=== PATIENT | male | born 2000 | race Caucasian/White ===

== ENCOUNTER 2019-09-26 22:51 | Emergency (ER) | payer MEDICAID, SELFPAY | END 2019-09-27 00:38 | disposition home or self-care (01) | PROVIDERS: Emergency Provider Physician Assistant; Family Provider Nurse Practitioner Family; Visit Provider Physician Assistant | DX: M94.0 Chondrocostal junction syndrome [Tietze] (principal) | CPT/HCPCS: 71046; 99281 ==

== ENCOUNTER 2024-07-29 08:49 | Outpatient (CLI) | payer MEDICARE, MEDICAID, SELFPAY ==
--- NOTE | 2024-07-29 08:56 | FL_ITS ---
WS: [id number] Barium swallow and esophagram, 07/29/2024 Clinical Data: DYSPHAGIA,UNSPECIFIED/HEMOPTYSIS Comparison: None. Fluoroscopy time: 1min [id number] # of spot films: 5 Findings: The patient swallowed the thick and thin barium, and it flowed through the hypopharynx without hesita tion. No stricture, mass, polyp or erosion was seen. The barium entered the esophagus and there was normal motility throughout. No hiatal hernia, reflux, stricture, polyp, mass, erosion or ulcer was noted. No ulcerations are seen. The barium passed normal ly into the stomach.. FL/FL barium swallow [id number] Impression: Normal esophagram.
== END 2024-07-29 08:50 | disposition home or self-care (01) ==
PROVIDERS: Visit Provider Otolaryngology
DX: R13.10 Dysphagia, unspecified (principal); R04.2 Hemoptysis
CPT/HCPCS: 74220

== ENCOUNTER 2024-08-03 10:57 | Outpatient (CLI) | payer MEDICARE, MEDICAID, SELFPAY ==
--- NOTE | 2024-08-03 10:58 | FL_ITS ---
WS: [id number] FL barium swallow modifd [id number] REASON FOR EXAM: Other dysphagia FLUOROSCOPY TIME: 2min [id number] # OF SPOT FILMS: 0 FINDINGS: Examination was supervised by the speech therapy department. Patient was evaluated in the sitting upright lateral projection. The swallowing of barium of varying consistencies was monitored fluoroscopically and video recorded. A detailed report of the swallowing will be rendered by the speech therapy department. No aspiration noted. FL/FL barium swallow modifd [id number] IMPRESSION: Modified barium swallow as above.
== END 2024-08-03 10:58 | disposition home or self-care (01) ==
LOC: RAD 10:57
PROVIDERS: Visit Provider Otolaryngology
DX: R13.10 Dysphagia, unspecified (principal); R04.2 Hemoptysis
CPT/HCPCS: 74230; 92611

== ENCOUNTER 2024-09-14 10:51 | Outpatient (CLI) | payer MEDICARE, MEDICAID, SELFPAY ==
--- NOTE | 2024-09-14 10:54 | CTR_ITS ---
PROCEDURE INFORMATION: Exam: CT Neck With Contrast Exam date and time: 09/14/2024 11:11 AM Age: 24 years old Clinical indication: Dysphagia / difficulty swallowing; Patient HX: Dysphagia, hemoptysis since February, GERD, hiatal hernia; Additional info: Dysphagia/hemoptysis TECHNIQUE: Imaging protocol: Computed tomography of the neck with contrast. Radiation optimization: All CT scans at this facility use at least one of these dose optimization techniques: automated exposure control; mA and/or kV adjustment per patient size (includes targeted exams where dose is matched to clinical indication); or iterative reconstruction. Contrast material: OMNI 350; Contrast volume: 100 ml; Contrast route: INTRAVENOUS (IV); COMPARISON: RF FL barium swallow modifd [id number] 08/03/2024 11:03 AM RADIATION DOSE METRICS: Total DLP (mGy-cm): 263.57 FINDINGS: Mild soft tissue fullness in the vallecula and base of tongue may represent lingual tonsillar hypertrophy. Visualization via mirror or endoscopic pharyngoscopy is suggested. Otherwise, no obvious acute abnormality of the mucosal space is seen. No acute abnormality of either parotid gland or of either submandibular gland. Parapharyngeal fat planes and fat planes in the floor of mouth are preserved. Bilaterally symmetric mildly prominent cervical lymph nodes, likely reactive. Carotid and jugular vessels in the neck are unremarkable. There is a right thyroid nodule that measures up to 1.7 cm maximum diameter, likely the cystic and nodular solid component. Appearance is nonspecific; further evaluation with ultrasound and potentially tissue sampling may be warranted. No acute osseous abnormality identified. CT/CT neck w con* [id number] IMPRESSION: 1. Slight soft tissue prominence at the tongue base may represent lingual tonsillar hypertrophy. Please correlate with clinical exam. 2. Right thyroid nodule. This should be evaluated with nonemergent ultrasound to determine if tissue sampling versus monitoring is warranted. COMMENTS: Consistent with the [employer]'s Incidental Findings Committee white paper (J Am Dilip Radiol 2015): In patients under 35 years old with an incidental thyroid nodule equal to or greater than [address], MRI or extrathyroidal US, further evaluation with dedicated thyroid US is recommended for patients with normal life expectancy and without comorbidities. For smaller nodules without suspicious features, no further evaluation or follow up is recommended.
[2024-09-14] MEDS: iohexol 350 mg/mL 500 mL Btl (per mL) IV (11:20)
== END 2024-09-14 10:52 | disposition home or self-care (01) ==
PROVIDERS: Visit Provider Specialist
DX: E04.1 Nontoxic single thyroid nodule (principal); R13.10 Dysphagia, unspecified; R04.2 Hemoptysis; R93.89 Abnormal findings on diagnostic imaging of other specified body structures
CPT/HCPCS: 70491

== ENCOUNTER 2024-11-18 14:54 | Oncology outpatient (recurring) (ONCR) | payer MEDICARE, MEDICAID, SELFPAY ==
[2024-11-18 16:38] LABS: Basophils % 0.3 %; Eosinophils # 0.1 10^3/uL (0.0-0.8); Eosinophils % 0.6 %; Hematocrit 49.2 % (37-53); Lymphocytes # 2.7 10^3/uL (0.8-4.8); Lymphocytes % 22.6 %; Mean Corpuscular HGB Conc 34.1 g/dL (30-55); Mean Corpuscular Hemoglobin 28.6 pg (27-33); Mean Corpuscular Volume 83.8 fl (82-101); Mean Platelet Volume 9.5 fL (7.4-10.4); Monocytes # 0.5 10^3/uL (0.2-0.9); Monocytes % 4.3 %; Neutrophils # 8.62 10^3/uL (1.8-7.7); Neutrophils % 71.7 %; Nucleated Red Blood Cells % 0 %; Platelet Count 385 10^3/cmm (157-399); Red Blood Count 5.87 10^6/uL (3.85-5.65); Red Cell Distribution Width 12.4 % (12.1-15.1)
[2024-11-18 16:41] LABS: Erythrocyte Sedimentation Rate < 1 mm/hr (0-10)
[2024-11-18 16:59] LABS: INR 0.96 (0.8-1.2)
[2024-11-18 17:00] LABS: Partial Thromboplastin Time 31.4 SECONDS (23.9-36.7)
[2024-11-18 17:11] LABS: Alanine Aminotransferase 24 U/L (0-41); Albumin Level 4.7 g/dL (3.5-5.2); Alkaline Phosphatase 64 U/L (40-130); Anion Gap 18.8 (5-19); Aspartate Amino Transferase 19 U/L (0-40); Blood Urea Nitrogen 10 mg/dL (6-20); Calcium 9.7 mg/dL (8.5-10.5); Carbon Dioxide 27 mmol/L (22-29); Chloride 102 mmol/L (98-107); Creatinine Clr Calc Pharmacy 163.9067; Free T4 Free Thyroxine 1.28 ng/dL (0.82-1.77); Globulin 2.9 g/dL (1.3-4.6); Glomerular Filtration Rate 116.9 mL/min (90-130); Glucose 120 mg/dL (65-115); Lactate Dehydrogenase 152 U/L (135-225); Osmolality Calculated 296 mOsm/kg (285-295); Potassium 4.8 mmol/L (3.5-5.1); Sodium 143 mmol/L (136-145); T3 Free 3.9 PG/ML (2.0-4.4); Thyroid Stimulating Hormone 2.21 uIU/mL (0.27-4.20); Total Bilirubin 0.5 mg/dL (0.15-1.2); Total Protein 7.6 g/dL (6.6-8.7)
[2024-11-22 15:54] LABS: Thyroglobulin AB 2 IU/mL (< or = 1)
[2024-11-24 14:49] LABS: Factor 5 Leiden Mutation POSITIVE
[2024-12-02 16:29] LABS: Thyroglobulin Level 17.1 ng/mL
== END 2024-11-26 23:59 | disposition home or self-care (01) ==
LOC: ONCMED 14:54
PROVIDERS: Visit Provider Internal Medicine
DX: C73 Malignant neoplasm of thyroid gland (principal); R04.2 Hemoptysis; D68.51 Activated protein C resistance; F90.9 Attention-deficit hyperactivity disorder, unspecified type
CPT/HCPCS: 36415; 80053; 81241; 83615; 84432; 84439; 84443; 84481; 85025; 85610; 85651; 85730; 86800; 99205

== ENCOUNTER 2024-12-22 14:52 | Oncology outpatient (recurring) (ONCR) | payer MEDICARE, MEDICAID, SELFPAY | END 2024-12-27 23:59 | disposition home or self-care (01) | PROVIDERS: Visit Provider Internal Medicine | DX: C73 Malignant neoplasm of thyroid gland (principal); Z87.891 Personal history of nicotine dependence; D68.51 Activated protein C resistance; R04.2 Hemoptysis; F90.9 Attention-deficit hyperactivity disorder, unspecified type | CPT/HCPCS: 99213 ==

== ENCOUNTER 2024-12-28 08:32 | Day surgery (SDC) | payer MEDICARE, MEDICAID, SELFPAY ==
[2024-12-28 08:51] VITALS: BP 132/84; PULSE 72; RESP 18; TEMP 36.4; O2SAT 97; BMI 34.2
[2024-12-28] MEDS: sodium chloride 0.9% 1,000 ML 30 ML IV (09:08)
--- NOTE | 2024-12-28 10:10 | P.PN_ITS ---
Subjective Subjective: 24yo wm with a h/o hemoptysis with a rig ht thyroid nodule with FNA biopsy suspicious for malignancy who presents today for surgery. The patient continues to cough up blood and reports that this has worsened recently. Medications: Reviewed: Yes Vitals/I&O/Wt Last Vital Signs Temp 97.6 F 12/28/24 08:51 Pulse 72 12/28/24 08:51 Resp 18 12/28/24 08:51 BP 132/84 12/28/24 08:51 Pulse Ox 97 12/28/24 08:51 O2 Del Method Room Air 12/28/24 08:51 Weight last 48 hrs Weight 102.058 kg Physical Exam Const: COMMON NORMALS: no acute distress, average body habitus and patient oriented x3 HENMT: COMMON NORMALS: normocephalic and atraumatic HEAD & SCALP: normocephalic and atraumatic FACE & SINUS: normal facial exam Eye: COMMON NORMALS: Equal, round and reactive pupils present and EOMs intact bilaterally PUPIL: Yes Equal, round and reactive pupils present Neck/C-Spine: COMMON NORMALS: full ROM, no lymphadenopathy and supple Lymph: LYMPHATIC: no lymphadenopathy noted Chest: COMMONS NORMALS: normal inspection of the chest Neuro: COMMON NORMALS: patient oriented x3 A&P Assessment and plan (1) Thyroid ca: Impression/Plan: Right thyroid nodule with FNA suspicious for malignancy and he moptysis. The hemoptysis had resolved last fall, but he coughed up blood in the preop hold area this morning. I am concerned that his thyroid nodule may be invading into his airway. I am not sure that this is the case, but would like to cancel his case for today and refer the patient to a tertiary medical center that is prepared to resect and reconstruct his airway if airway invasion is found at surgery. PDMP PDMP Reviewed: Not Reviewed Attestations Medical Necessity Statement*: The case was cancelled for today as above. Coding Level of Care Code Acute Code for Chg Fwd Diagnoses Thyroid ca C73
--- NOTE | 2024-12-28 10:49 | PC.NURSE ---
Pt to be canceled today due to discussion with anesthesia and Dr. Pt IV removed. Pt dressed and personal belongs with pt. pt discharged via ambulation and private vehicle.
== END 2024-12-28 10:20 | disposition home or self-care (01) ==
PROVIDERS: Visit Provider Specialist
PROC: (CPT 60240; principal; 2024-12-28 09:50)
PROC: 0CJS8ZZ Inspection of Larynx, Via Natural or Artificial Opening Endoscopic (ICD-10-PCS; CPT 60240; 2024-12-28 09:50)
DX: E04.1 Nontoxic single thyroid nodule (principal); R04.2 Hemoptysis; Z53.8 Procedure and treatment not carried out for other reasons
CPT/HCPCS: 60240; J0131; J0330; J1100; J1171; J2250; J2405; J2704; J3010; J7030; J9999